=== PATIENT | female | born 2000 | race Caucasian/White ===

== ENCOUNTER 2023-09-08 18:34 | Emergency (ER) | payer OTHER ==
[2023-09-08 19:15] VITALS: BP 113/71; PULSE 87; RESP 16; TEMP 98; BMI 26.9
[2023-09-08 19:31] LABS: HCG,QUALITATIVE URINE Positive
== END 2023-09-08 21:02 | disposition home or self-care (01) ==
LOC: FER 18:34
DX: O26.891 Other specified pregnancy related conditions, first trimester (principal); R10.2 Pelvic and perineal pain; R11.0 Nausea; Z3A.00 Weeks of gestation of pregnancy not specified
CPT/HCPCS: 76801-TC; 81003; 84703; 99284-25